=== PATIENT | male | born 1995 | race Caucasian/White ===

== ENCOUNTER 2023-12-12 21:05 | Inpatient (IN) | payer OTHER ==
[2023-12-12] MEDS ORDERED: NALOXONE HCL 0.4 MG/ML VIAL IM PRN (21:49)
[2023-12-12] MEDS ORDERED: POLYETHYLENE GLYCOL (HEALTHYLAX) 3350 17 GM PACKET PO PRN (21:49)
[2023-12-12] MEDS ORDERED: IBUPROFEN 400 MG TABLET (FP) PO PRN (21:49)
[2023-12-12] MEDS ORDERED: MAG HYDROX/AL HYDROX/SIMETH 30 ML UNIT-DOSE CUP PO PRN (21:49)
[2023-12-12] MEDS ORDERED: LOPERAMIDE HCL 2 MG CAPSULE PO PRN (21:49)
[2023-12-12] MEDS ORDERED: DICYCLOMINE HCL 10 MG CAPSULE PO PRN (21:49)
[2023-12-12] MEDS ORDERED: MAGNESIUM HYDROX 2400MG/30ML ORAL SUSPENSION 30 ML CUP PO PRN (21:49)
[2023-12-12] MEDS ORDERED: BENZOCAINE/MENTHOL (CHLORASEPTIC ) LOZENGE MM PRN (21:49)
[2023-12-12] MEDS ORDERED: guaiFENesin 600 MG TABLET.ER (FP) PO PRN (21:49)
[2023-12-12] MEDS ORDERED: NALOXONE (NARCAN) HCL 4 MG/0.1 ML SPRAY NS PRN (21:49)
[2023-12-12] MEDS ORDERED: BISMUTH SUBSALICYLATE 524 MG/30 ML PO PRN (21:49)
[2023-12-12] MEDS ORDERED: ONDANSETRON *ODT* 4 MG TABLET SL PRN (21:49)
[2023-12-12] MEDS ORDERED: BENZONATATE 200 MG CAPSULE PO PRN (21:49)
[2023-12-12] MEDS ORDERED: NICOTINE POLACRILEX 4 MG GUM BUC PRN (21:49)
[2023-12-12 22:29] VITALS: BMI 18.6
[2023-12-13] MEDS: THIAMINE 100 MG TABLET PO SCH (00:30)
[2023-12-13] MEDS: MELATONIN 5 MG TABLETS PO SCH (00:30)
[2023-12-13] MEDS ORDERED: PATIENT'S OWN MEDICATION (NON-FORMULARY) (Insulin Lispro [Humalog] 100 UNIT/ML Vial) SQ PRN (06:45)
[2023-12-13] MEDS: PRENATAL VITAMINS W/ FOLIC ACID TABLET (FP) PO SCH (10:00)
[2023-12-13] MEDS: METHOCARBAMOL 500 MG TABLET PO PRN (10:00)
[2023-12-13] MEDS: GABAPENTIN 300 MG CAPSULE PO SCH (10:00)
[2023-12-13] MEDS: methaDONE HCL 10 MG TABLET (FOR DETOX USE ONLY) PO ONE (10:01)
[2023-12-13] MEDS: cloNIDine HCL 0.1 MG TABLET PO SCH (10:01)
[2023-12-13] MEDS: BUPRENORPHINE/NALOXONE 0.5 MG/0.125 MG FILM SL ONE ×2 (10:02→22:32)
[2023-12-13] MEDS: NICOTINE 21 MG/24 HOURS TOPICAL PATCH TD SCH (10:05)
[2023-12-13 12:04] LABS: CHLORIDE 106 mmol/L (98-107); POTASSIUM 4.2 mmol/L (3.5-5.1); SODIUM 140 mmol/L (136-145)
[2023-12-13 12:05] LABS: HEMATOCRIT 35.7 % (35.4-49); HEMOGLOBIN 11.9 GM/dL (11.7-16.9); MCH 27.6 pg (25.7-33.7); MCHC 33.2 g/dl (32.0-35.9); MEAN PLT VOLUME 8.3 fl (7.5-11.1); PLATELET COUNT 279 10^3/uL (134-434); RBC 4.31 M/mm3 (4.00-5.60); RDW 13.7 % (11.9-15.9); WHITE BLOOD COUNT 7.4 K/mm3 (4.0-10.0)
[2023-12-13 12:08] LABS: CALCIUM 9.1 mg/dL (8.5-10.1)
[2023-12-13 12:09] LABS: ALBUMIN 3.2 g/dl (3.4-5.0); ANION GAP 4 mmol/L (4-13); BLOOD UREA NITROGEN 12.9 mg/dL (7-18); CO2 30 mmol/L (21-32); GLUCOSE,RANDOM 154 mg/dL (74-106)
[2023-12-13 12:12] LABS: CREATININE 0.6 mg/dL (0.55-1.3); SGOT/AST 20 U/L (15-37); SGPT/ALT 39 U/L (13-61)
[2023-12-13 12:13] LABS: BILIRUBIN,TOTAL 0.4 mg/dL (0.2-1)
[2023-12-13 12:15] LABS: ALK PHOS 90 U/L (45-117)
[2023-12-13] MEDS: hydrOXYzine PAMOATE 25 MG CAPSULE (FP) PO PRN (17:27)
[2023-12-13] MEDS: ATORVASTATIN CA 20 MG TABLET (FP) PO SCH (22:31)
[2023-12-14 00:05] LABS: EPI CELLS 4 /uL (0-25.1); HYALINE CASTS 2 /uL (0-3.1); URINE APPEARANCE CLOUDY; URINE BACTERIA 22 /uL (0-1359); URINE BILIRUBIN NEGATIVE (NEGATIVE); URINE COLOR YELLOW; URINE GLUCOSE (UA) 2+ (NEGATIVE); URINE KETONE NEGATIVE (NEGATIVE); URINE LEUK ESTERASE NEGATIVE (NEGATIVE); URINE NITRITE NEGATIVE (NEGATIVE); URINE PROTEIN 2+ (NEGATIVE); URINE RBC 6 /uL (0-23.9); URINE UROBILINOGEN 0.2 mg/dL (0.2-1.0)
[2023-12-14] MEDS: IBUPROFEN 600 MG TABLET (FP) PO PRN (05:37)
[2023-12-14] MEDS: diazePAM 5 MG TABLET PO PRN (10:09)
[2023-12-14] MEDS: BUPRENORPHINE/NALOXONE 0.5 MG/0.125 MG FILM SL SCH (10:10)
[2023-12-14 17:15] LABS: EPI CELLS 4 /uL (0-25.1); HYALINE CASTS 3 /uL (0-3.1); URINE APPEARANCE CLEAR; URINE BACTERIA 3 /uL (0-1359); URINE BILIRUBIN NEGATIVE (NEGATIVE); URINE COLOR YELLOW; URINE GLUCOSE (UA) 2+ (NEGATIVE); URINE KETONE NEGATIVE (NEGATIVE); URINE LEUK ESTERASE NEGATIVE (NEGATIVE); URINE NITRITE NEGATIVE (NEGATIVE); URINE PROTEIN 1+ (NEGATIVE); URINE RBC 13 /uL (0-23.9)
[2023-12-14] MEDS: ACETAMINOPHEN 325 MG TABLET (FP) PO PRN (17:41)
[2023-12-15 08:37] VITALS: BP 121/69; PULSE 101; RESP 18; TEMP 98
[2023-12-15] MEDS: methaDONE HCL 10 MG TABLET (FOR DETOX USE ONLY) PO ONE (09:01)
[2023-12-15] MEDS: BUPRENORPHINE/NALOXONE 2 MG/0.5 MG FILM PACKET SL SCH (09:12)
[2023-12-16] MEDS ORDERED: BUPRENORPHINE/NALOXONE 4 MG/1 MG FILM PACKET SL SCH (10:00)
[2023-12-17] MEDS ORDERED: BUPRENORPHINE/NALOXONE 8 MG/2 MG FILM PACKET SL SCH (10:00)
[2023-12-17] MEDS ORDERED: methaDONE HCL 10 MG TABLET (FOR DETOX USE ONLY) PO ONE (10:00)
[2023-12-18] MEDS ORDERED: BUPRENORPHINE/NALOXONE 8 MG/2 MG FILM PACKET SL SCH (10:00)
== END 2023-12-15 09:35 | disposition home or self-care (01) | DRG 773 ==
LOC: YASAS 21:05 → Y6N 12-13 01:15
PROVIDERS: ADMIT Allergy & Immunology; ATTEND Allergy & Immunology
PROC: HZ2ZZZZ Detoxification Services for Substance Abuse Treatment (ICD-10-PCS; principal; 2023-12-13)
DX: F11.23 Opioid dependence with withdrawal (principal); F12.10 Cannabis abuse, uncomplicated; F19.24 Other psychoactive substance dependence with psychoactive substance-induced mood disorder; F41.8 Other specified anxiety disorders; F32.A Depression, unspecified; E78.5 Hyperlipidemia, unspecified; E10.8 Type 1 diabetes mellitus with unspecified complications; Z96.41 Presence of insulin pump (external) (internal); Z79.4 Long term (current) use of insulin; R35.0 Frequency of micturition; R30.0 Dysuria
CPT/HCPCS: 36415; 80053; 80305; 80307; 81003; 85027; 86780; 93005; 93010